=== PATIENT | male | born 1940 | race Caucasian/White ===

== ENCOUNTER 2020-09-19 08:52 | Observation (INO) ==
[2020-09-19] MEDS ORDERED: Aspirin 81 MG TAB.CHEW PO ONE (09:16)
[2020-09-19] MEDS ORDERED: GI Cocktail 40 ML EACH PO ONE (09:16)
[2020-09-19 09:18] LABS: Bilirubin,Urine Negative (Negative); Blood,Urine Moderate (Negative); Clarity,Urine Turbid (Clear); Color,Urine Yellow (Yellow); Glucose,Urine (UA) Normal (Normal); Ketones,Urine Negative (Negative); Leukocyte Esterase,Urine Moderate (Negative); Mucus,Urine Few per lpf (None-Few); Nitrite,Urine Negative (Negative); Protein,Urine 70 mg/dL (Neg-Trace); RBC,Urine TNTC per hpf (0-3); Specific Gravity,Urine 1.024 (1.010-1.025); Squamous Epithelial Cell,Urine Few per hpf (None-Few); Transitional Epi Cells,Urine Few per hpf (None-Few); Urobilinogen,Urine Normal (Normal); WBC,Urine 50-100 per hpf (0-3)
[2020-09-19] MEDS ORDERED: Ondansetron 4 MG/2 ML VIAL IVP ONE (09:22)
[2020-09-19 09:29] LABS: Basophils % 0.2 %; Hematocrit 37.9 % (37.5-50.1); Hemoglobin 13.1 g/dL (12.9-16.9); Immature Granulocytes % 0.5 % (0-4); Lymphocytes # 0.7 K/mcL (0.6-4.6); Lymphocytes % 4.2 %; Mean Corpuscular HGB Conc 34.6 g/dL (31.6-35.5); Mean Corpuscular Hemoglobin 31.2 pg (28.0-33.3); Mean Corpuscular Volume 90.2 fL (83.0-100.0); Mean Platelet Volume 9.7 fL (9.4-12.4); Monocytes # 1.8 K/mcL (0.0-1.3); Monocytes % 10.5 %; Neutrophils # 14.1 K/mcL (1.6-8.9); Platelet Count 215 K/mcL (140-400); Segmented Neutrophils % 84.6 %; White Blood Count 16.7 K/mcL (4.3-11.1)
[2020-09-19 09:45] LABS: BUN/Creatinine Ratio 17 (6-26); Blood Urea Nitrogen 18 mg/dL (8-23); Calcium 8.8 mg/dL (8.6-10.3); Carbon Dioxide 25 mEq/L (23-29); Chloride 101 mEq/L (98-107); Glucose 159 mg/dL (70-105); Osmolality,Calculated 283 (280-300); Potassium 3.5 mEq/L (3.5-5.1); Sodium 134 mEq/L (136-145); eGFR For African Americans > 60 (> 60); eGFR For Non-African Americans > 60 (> 60)
[2020-09-19 09:57] LABS: Lipase 28 Units/L (11-82); Troponin I 0.03 ng/mL (< 0.04)
[2020-09-19 10:03] LABS: INR 1.4; Prothrombin Time 15.7 Seconds (9.4-12.1)
[2020-09-19 10:06] LABS: Activated Partial Thrombo Time 27.7 Seconds (26.0-36.0)
[2020-09-19] MEDS ORDERED: 0.9 % Sodium Chloride 1,000 ML IVC ONE ×2 (10:07→11:04)
[2020-09-19] MEDS ORDERED: Isovue-370 500 ML BOTTLE IVP ONE (10:17)
[2020-09-19] MEDS ORDERED: Cefepime HCl 2,000 MG in Water for inj. (sterile) 20 ML IVP STA (10:17)
[2020-09-19] MEDS ORDERED: Ketorolac 15 MG/ML VIAL IVP ONE (13:11)
[2020-09-19] MEDS ORDERED: Morphine Sulfate 2 MG/ML SYRINGE IVP ONE (13:31)
[2020-09-19] MEDS ORDERED: Naloxone 0.4 MG/ML INJ IVP PRN (13:32)
[2020-09-19] MEDS ORDERED: Ondansetron 4 MG/2 ML VIAL IVP PRN (13:39)
[2020-09-19] MEDS ORDERED: Acetaminophen 325 MG TABLET PO PRN (13:39)
[2020-09-19] MEDS ORDERED: *HR* OxyCODONE Immed Rel 5 MG TABLET PO PRN (13:39)
[2020-09-19] MEDS: 0.9 % Sodium Chloride 1,000 ML IVC SCH (14:11)
[2020-09-19] MEDS: cefTRIAXone 1,000 MG in Water for inj. (sterile) 10 ML IVP SCH (15:58)
[2020-09-19] MEDS ORDERED: Cefepime HCl 1,000 MG in Water for inj. (sterile) 10 ML IVP SCH (16:00)
[2020-09-19] MEDS: *HR* Heparin 5,000 UNIT/ML VIAL SQ SCH (17:45)
[2020-09-19] MEDS: traZODone 50 MG TABLET PO SCH (21:20)
[2020-09-20] MEDS: 0.9 % Sodium Chloride 1,000 ML IVC SCH ×2 (02:33→10:17)
[2020-09-20] MEDS: Melatonin 3 MG TABLET PO PRN ×2 (02:35→22:27)
[2020-09-20] MEDS: *HR* HYDROcodone/Acet 5/325 mg TABLET PO PRN ×2 (02:35→22:27)
[2020-09-20] MEDS: *HR* Heparin 5,000 UNIT/ML VIAL SQ SCH ×2 (05:20→17:37)
[2020-09-20 07:51] LABS: Basophils % 0.2 %; Eosinophils % 0.1 %; Hematocrit 31.9 % (37.5-50.1); Immature Granulocytes % 0.5 % (0-4); Lymphocytes % 6.7 %; Mean Corpuscular HGB Conc 32.9 g/dL (31.6-35.5); Mean Corpuscular Hemoglobin 30.8 pg (28.0-33.3); Mean Corpuscular Volume 93.5 fL (83.0-100.0); Mean Platelet Volume 9.9 fL (9.4-12.4); Monocytes # 1.4 K/mcL (0.0-1.3); Monocytes % 9.2 %; Neutrophils # 12.3 K/mcL (1.6-8.9); Platelet Count 146 K/mcL (140-400); Red Blood Count 3.41 M/mcL (4.19-5.50); Red Cell Distribution Width 13.5 % (11.5-14.5); Segmented Neutrophils % 83.3 %; White Blood Count 14.7 K/mcL (4.3-11.1)
[2020-09-20 07:55] LABS: Hemoglobin 10.5 g/dL (12.9-16.9)
[2020-09-20 08:06] LABS: BUN/Creatinine Ratio 22 (6-26); Blood Urea Nitrogen 22 mg/dL (8-23); Calcium 7.8 mg/dL (8.6-10.3); Carbon Dioxide 23 mEq/L (23-29); Chloride 110 mEq/L (98-107); Glucose 119 mg/dL (70-105); Osmolality,Calculated 292 (280-300); Potassium 3.7 mEq/L (3.5-5.1); Sodium 139 mEq/L (136-145); eGFR For African Americans > 60 (> 60); eGFR For Non-African Americans > 60 (> 60)
[2020-09-20] MEDS: lisinopriL 20 MG TABLET PO SCH (10:12)
[2020-09-20] MEDS: cefTRIAXone 1,000 MG in Water for inj. (sterile) 10 ML IVP SCH (15:37)
[2020-09-20] MEDS ORDERED: cefTRIAXone 1,000 MG in 0.9 % Sodium Chloride Mini Bag 100 ML IVPB ONE (16:00)
[2020-09-20] MEDS ORDERED: Acetaminophen/Aspirin/Caffeine TABLET PO ONE (19:42)
[2020-09-20] MEDS: traZODone 50 MG TABLET PO SCH (22:27)
[2020-09-20] MEDS ORDERED: Latanoprost 2.5 ML BOTTLE LEFT EYE SCH (22:30)
[2020-09-21] MEDS: *HR* Heparin 5,000 UNIT/ML VIAL SQ SCH ×2 (05:39→17:23)
[2020-09-21 06:36] LABS: Basophils % 0.3 %; Eosinophils # 0.2 K/mcL (0.0-0.6); Hematocrit 33.5 % (37.5-50.1); Immature Granulocytes % 0.3 % (0-4); Lymphocytes # 1.3 K/mcL (0.6-4.6); Lymphocytes % 14.3 %; Mean Corpuscular HGB Conc 32.8 g/dL (31.6-35.5); Mean Corpuscular Volume 94.4 fL (83.0-100.0); Mean Platelet Volume 10.5 fL (9.4-12.4); Monocytes # 0.8 K/mcL (0.0-1.3); Monocytes % 8.9 %; Platelet Count 156 K/mcL (140-400); Red Blood Count 3.55 M/mcL (4.19-5.50); Red Cell Distribution Width 13.4 % (11.5-14.5); Segmented Neutrophils % 74.2 %; White Blood Count 9.4 K/mcL (4.3-11.1)
[2020-09-21 07:00] LABS: BUN/Creatinine Ratio 24 (6-26); Blood Urea Nitrogen 24 mg/dL (8-23); Carbon Dioxide 23 mEq/L (23-29); Chloride 107 mEq/L (98-107); Glucose 99 mg/dL (70-105); Magnesium 1.9 mg/dL (1.6-2.6); Osmolality,Calculated 288 (280-300); Phosphorous 2.5 mg/dL (2.7-4.5); Potassium 3.5 mEq/L (3.5-5.1); Sodium 137 mEq/L (136-145); eGFR For African Americans > 60 (> 60); eGFR For Non-African Americans > 60 (> 60)
[2020-09-21] MEDS: lisinopriL 20 MG TABLET PO SCH (07:49)
[2020-09-21] MEDS: cefTRIAXone 1,000 MG in Water for inj. (sterile) 10 ML IVP SCH (17:04)
[2020-09-21 18:46] VITALS: BP 149/75
== END 2020-09-21 19:22 | disposition home or self-care (01) ==
LOC: 3ANU 08:52 → EMEROOARM 08:52 → SUATTDRO 14:23 → 3ANU 15:30
PROVIDERS: ADMIT Internal Medicine; ATTEND Internal Medicine